=== PATIENT | female | born 1970 | race Two or more races ===

== ENCOUNTER 2016-05-27 15:28 | Emergency (ER) | payer OTHER ==
[~2016-05-27] VITALS: Ht 165.1 cm; Wt 64.0 kg
[2016-05-27 15:28] VITALS: BP 116/67
== END 2016-05-27 16:20 | disposition home or self-care (01) ==
LOC: ER 15:37
DX: L03.90 Cellulitis, unspecified (principal)
CPT/HCPCS: 99281; A4606; Z7610; Z7502